=== PATIENT | female | born 1940 | race Caucasian/White ===

== ENCOUNTER 2016-11-03 14:41 | Inpatient (IN) | payer MEDICARE ==
[~2016-11-03] VITALS: Ht 152.4 cm; Wt 51.3 kg
[~2016-11-03 14:41] MED LIST: AMOX1TAB61 PO; ASPI325T4 PO; DIAZ10TA4 PO; FAMO20TA5 PO; FLUO20TA11 PO; FURO40TA4 PO; GUAI100L12 PO; GUAI600T38 PO; IPRA3AMP NEB; LEVO125T5 PO; LEVO75TA PO; LISI-338 PO; METO25TA4 PO; MONT10TA9 PO; PRED-220 PO; SENN1TAB5 PO
[2016-11-03] MEDS ORDERED: IPRATRPIUM/ALBUTEROL 0.5/2.5MG 3 ML NEBU. ONE (14:52)
[2016-11-03] MEDS ORDERED: methylPREDNISolone SOD SUCC PF 125 MG/2 ML VIAL. IV ONE (15:10)
[2016-11-03] MEDS ORDERED: ALPRAZOLAM 0.25 MG TABLET PO ONE (15:10)
[2016-11-03] MEDS ORDERED: IPRATRPIUM/ALBUTEROL 0.5/2.5MG 3 ML NEBU. NEB ONE (15:10)
[2016-11-03] MEDS ORDERED: IV NORMAL SALINE 1,000ML 1,000 ML IV ONE (15:10)
--- NOTE | 2016-11-03 15:15 | RAD ---
AP chest, 11/03/2016: History: Dyspnea Comparison is made to a study from 10/22/2016. There has been a previous median sternotomy. The heart size is normal. There is mild tortuosity of the thoracic aorta. A calcified granuloma is present in the left base. No acute infiltrates are seen. There is no evidence of pleural fluid. IMPRESSION: No acute cardiopulmonary abnormality is detected.
[2016-11-03 15:21] LABS: BASO # 0.1 x10^3/uL (0.0-0.2); BASO % 0 % (0-3); EOS % 0 % (0-3); HEMATOCRIT 39.4 % (36.0-47.0); HEMOGLOBIN 12.7 g/dL (12.0-15.5); LYMPH # 1.4 x10^3/uL (1.0-4.8); LYMPH % 7 % (24-48); MEAN CORPUSCULAR HEMOGLOBIN 28 pg (25-35); MEAN CORPUSCULAR HGB CONC 32 g/dL (31-37); MEAN CORPUSCULAR VOLUME 85 fL (79-100); MONO # 0.7 x10^3/uL (0.0-1.1); MONO % 4 % (0-9); NEUT # 17.6 x10^3uL (1.8-7.7); NEUT % 89 % (31-73); PLATELET COUNT 311 x10^3/uL (140-400); RED BLOOD COUNT 4.63 x10^6/uL (3.50-5.40); RED CELL DISTRIBUTION WIDTH 15.7 % (11.5-14.5); WHITE BLOOD COUNT 19.8 x10^3/uL (4.0-11.0)
[2016-11-03 15:27] LABS: CREATININE 1.7 mg/dL (0.6-1.0); GFR 29.3; POTASSIUM 4.8 mmol/L (3.5-5.1)
[2016-11-03] MEDS ORDERED: ONDANSETRON PF 4 MG/2 ML VIAL. IV PRN (15:45)
--- NOTE | 2016-11-03 15:52 | ED.ADGEN ---
Past History Past Medical History: Angina, Anxiety, Bronchitis, CAD, CHF, Constipation, COPD , CVA, Depression, Gallstones, GERD, High Cholesterol, Hypertension, Hypothyroid , HI, Other Past Surgical History: Coronary Bypass Surgery, Other Smoking: Cigarettes Alcohol Use: None Drug Use: None Adult General HPI HPI Patient is a 76-year-old female with a history of COPD complaining of increasing dyspnea over the last 24 hours despite compliance with her medication and pulmonary regimen. She denies any other recent illness. Review of Systems Review of Systems Constitutional: Denies fever or chills [] Eyes: Denies change in visual acuity, redness, or eye pain [] HENT: Denies nasal congestion or sore throat [] Respiratory: Denies cough or shortness of breath [] Cardiovascular: No additional information not addressed in HPI [] GI: Denies abdominal pain, nausea, vomiting, bloody stools or diarrhea [] : Denies dysuria or hematuria [] Musculoskeletal: Denies back pain or joint pain [] Integument: Denies rash or skin lesions [] Neurologic: Denies headache, focal weakness or sensory changes [] Endocrine: Denies polyuria or polydipsia [] Current Medications Current Medications Current Medications Medications (Trade) Dose Ordered Sig/Mike Start Time Stop Time Status Last Admin Dose Admin Albuterol/ Ipratropium (Duoneb) 3 ml RTQID 11/03/16 16:00 11/04/16 15:59 UNV Alprazolam (Xanax) 0.25 mg 1X ONCE 11/03/16 15:10 11/03/16 15:11 DC 11/03/16 15:10 0.25 MG Methylprednisolone Sodium Succinate 125 mg 125 mg 1X ONCE 11/03/16 15:10 11/03/16 15:11 DC 11/03/16 15:08 125 MG Ondansetron HCl (Zofran) 4 mg PRN Q4HRS PRN 11/03/16 15:45 11/04/16 15:44 UNV Sodium Chloride (Iv Sodium Chloride 0.9% 1,000ml) 1,000 ml @ 1,000 mls/hr 1X ONCE 11/03/16 15:10 11/03/16 16:09 11/03/16 15:07 1,000 MLS/HR Allergies Allergies Allergies Coded Allergies Type Severity Reaction Last Updated Verified No Known Drug Allergies 01/23/14 No Physical Exam Physical Exam Constitutional: Well developed, well nourished, moderate acute distress, non- toxic appearance. [] HENT: Normocephalic, atraumatic, bilateral external ears normal, oropharynx moist, no oral exudates, nose normal. [] Eyes: PERRLA, EOMI, conjunctiva normal, no discharge. [] Neck: Normal range of motion, no tenderness, supple, no stridor. [] Cardiovascular:Heart rate regular rhythm, no murmur [] Lungs & Thorax: Bilateral breath sounds are diminished with marked wheezing [] Abdomen: Bowel sounds normal, soft, no tenderness, no masses, no pulsatile masses. [] Skin: Warm, dry, no erythema, no rash. [] Back: No tenderness, no CVA tenderness. [] Extremities: No tenderness, no cyanosis, no clubbing, ROM intact, no edema. [] Neurologic: Alert and oriented X 3, normal motor function, normal sensory function, no focal deficits noted. [] Psychologic: Affect normal, judgement normal, mood normal. [] Current Patient Data Vital Signs Vital Signs Date Time Temp Pulse Resp B/P Pulse Ox O2 Delivery O2 Flow Rate FiO2 11/03/16 15:42 94 Nasal Cannula 2.0 11/03/16 14:41 98.3 82 40 Lab Results Laboratory Tests Test 11/03/16 14:55 White Blood Count 19.8x10^3/uL (4.0-11.0) H Red Blood Count 4.63x10^6/uL (3.50-5.40) Hemoglobin 12.7g/dL (12.0-15.5) Hematocrit 39.4% (36.0-47.0) Mean Corpuscular Volume 85fL (79-100) Mean Corpuscular Hemoglobin 28pg (25-35) Mean Corpuscular Hemoglobin Concent 32g/dL (31-37) Red Cell Distribution Width 15.7% (11.5-14.5) H Platelet Count 311x10^3/uL (140-400) Neutrophils (%) (Auto) 89% (31-73) H Lymphocytes (%) (Auto) 7% (24-48) L Monocytes (%) (Auto) 4% (0-9) Eosinophils (%) (Auto) 0% (0-3) Basophils (%) (Auto) 0% (0-3) Neutrophils # (Auto) 17.6x10^3uL (1.8-7.7) H Lymphocytes # (Auto) 1.4x10^3/uL (1.0-4.8) Monocytes # (Auto) 0.7x10^3/uL (0.0-1.1) Eosinophils # (Auto) 0.0x10^3/uL (0.0-0.7) Basophils # (Auto) 0.1x10^3/uL (0.0-0.2) Sodium Level 140mmol/L (136-145) Potassium Level 4.8mmol/L (3.5-5.1) Chloride Level 101mmol/L (98-107) Carbon Dioxide Level 34mmol/L (21-32) H Anion Gap 5 (6-14) L Blood Urea Nitrogen 40mg/dL (7-20) H Creatinine 1.7mg/dL (0.6-1.0) H Estimated GFR (Cockcroft-Gault) 29.3 Glucose Level 110mg/dL (70-99) H Calcium Level 9.0mg/dL (8.5-10.1) Troponin I Quantitative < 0.017ng/mL (0-0.055) EKG EKG [] Radiology/Procedures Radiology/Procedures AP chest, 11/03/2016: History: Dyspnea Comparison is made to a study from 10/22/2016. There has been a previous median sternotomy. The heart size is normal. There is mild tortuosity of the thoracic aorta. A calcified granuloma is present in the left base. No acute infiltrates are seen. There is no evidence of pleural fluid. IMPRESSION: No acute cardiopulmonary abnormality is detected. DICTATED AND SIGNED BY: CUAUHTEMOC MILES MD DATE: 11/03/16 [id number] CC: MICHAEL GOMEZ MD; ETELVINA MCKAY MD ~[] Course & Med Decision Making Course & Med Decision Making Pertinent Labs and Imaging studies reviewed. (See chart for details) Steroids, duoneb in ED. Admitted for additional treatment. [] Final Impression Final Impression COPD exacerbation[] Problems: Dragon Disclaimer Dragon Disclaimer This electronic medical record was generated, in whole or in part, using a voice recognition dictation system. MICHAEL GOMEZ MD Nov 03, 2016 15:52
[2016-11-03] MEDS ORDERED: IPRATRPIUM/ALBUTEROL 0.5/2.5MG 3 ML NEBU. NEB SCH (16:10)
--- NOTE | 2016-11-03 16:34 | ACF ---
Admit Criteria Forms Admit Criteria Forms Admit Criteria Forms COPD Clinical Indications for Admission to Inpatient Care (Place 'X' for any and all applicable criteria): Admission is indicated for ANY ONE of the following (1)(2)(3): [X ]I. Acute exacerbation by high-risk comorbidity (e.g., pneumonia, dysrhythmia, heart failure, pleural effusion, pneumothorax) or severe underlying COPD (e.g., steroid dependent) [ ]II. Inpatient admission required rather than observation care (see Chronic Obstructive Pulmonary Disease: Observation Care) because of ANY ONE of the following: [ ]a) New or pre-existing signs or symptoms of COPD (eg, dyspnea or Tachypnea at rest or with minimal activity) that persist despite outpatient and observation care treatment [ ]b) New-onset hypoxemia (room air SaO2 less than 90%, PO2 less than 60 mm Hg (8.0 kPa)) that persists despite outpatient and observation care treatment [ ]c) Worsening of pre-existing hypoxemia (eg, new or increased requirement for supplemental oxygen to maintain oxygenation at baseline level) that persists despite outpatient and observation care treatment, with oxygen treatment needs performable only in acute inpatient setting [ ]d) Hypercarbia (PCO2 greater than 40 mm Hg (5.3 kPa))-induced respiratory acidosis (pH less than 7.35) that persists despite outpatient and observation care treatment [ ]e) Supplemental oxygen or respiratory treatments for over 24 hours that are performable only in acute inpatient setting [ ]f) Chest tube placement with active evacuation (e.g., suction, drainage) (5) [ ]g) Other condition, treatment or monitoring requiring inpatient admission [ ]III. Planned invasive surgical or diagnostic procedures requiring acute- care hospitalization [ ]IV. Acute respiratory failure (e.g., uncompensated hypercarbia, severe hypoxemia) [ ]V. Severe comorbid condition (e.g., severe steroid myopathy, acute vertebral fracture) that has acutely worsened pulmonary function [ ]. Confusion state, lethargy, obtundation, stupor or coma Extended stay beyond goal length of stay may be needed for (31)(32): [ ]a ) Respiratory Failure. [ ]b) Severe or persisting hypoxemia or hypercarbia [ ]c) Severe or persistent dyspnea [ ]d) Comorbidities (e.g. chronic heart failure, atrial fibrillation with rapid response, pneumonia) [ ]e) Malnutrition The original [employer] content created by [facility] has been revised. The portions of the content which have been revised are identified through the use of italic text or in bold, and [facility] has neither reviewed nor approved the modified material. All other unmodified content is copyright [facility]. Please see references footnoted in the original [facility] edition 2016 MEE TAVAREZ Nov 03, 2016 16:34
[2016-11-03 16:45] VITALS: BP 132/58
--- NOTE | 2016-11-03 16:57 | NUR ---
Pt arrived on unit in bed A&Ox4, pt transferred into bed with assistance, VSS, assessment complete, pt denies pain, pt oriented to unit and hospital environment, call light within reach, no complaints.
[2016-11-03 18:09] LABS: % LYMPHS 7 % (24-48); % MONOS 2 % (0-10); % SEGS 91 % (35-66)
[2016-11-03 18:13] LABS: PLT ESTIMATE ADEQUATE (ADEQUATE)
[2016-11-03 18:25] VITALS: BP 132/58
[2016-11-03] MEDS: IPRATRPIUM/ALBUTEROL 0.5/2.5MG 3 ML NEBU. NEB SCH (20:17)
[2016-11-03] MEDS: GUAIFENESIN ER 600 MG TABLET.ER PO SCH (20:56)
[2016-11-03] MEDS: METOPROLOL TART IMMED RELEASE 25 MG TABLET PO SCH (20:56)
[2016-11-03] MEDS: methylPREDNISolone SOD SUCC PF 40 MG/ML VIAL. IV SCH (20:57)
[2016-11-03] MEDS ORDERED: LISINOPRIL 5 MG TABLET. PO SCH (21:00)
[2016-11-03] MEDS ORDERED: MONTELUKAST 10 MG TABLET. PO SCH (21:00)
[2016-11-03] MEDS ORDERED: DIAZEPAM 5 MG TABLET PO SCH (21:00)
[2016-11-03] MEDS: GUAIFENESIN 300 MG/15 ML LIQUID. PO PRN (21:04)
[2016-11-04] MEDS: IPRATRPIUM/ALBUTEROL 0.5/2.5MG 3 ML NEBU. NEB SCH ×3 (05:21→15:34)
[2016-11-04 06:09] VITALS: BP 154/72
[2016-11-04] MEDS ORDERED: LEVOTHYROXINE 75 MCG TABLET PO SCH (07:00)
[2016-11-04] MEDS: GUAIFENESIN ER 600 MG TABLET.ER PO SCH (08:36)
[2016-11-04] MEDS: methylPREDNISolone SOD SUCC PF 40 MG/ML VIAL. IV SCH (08:36)
[2016-11-04 08:40] VITALS: BP 160/65
[2016-11-04] MEDS: METOPROLOL TART IMMED RELEASE 25 MG TABLET PO SCH (08:44)
[2016-11-04] MEDS ORDERED: PREDNISONE 10 MG TABLET PO SCH (09:00)
[2016-11-04] MEDS ORDERED: FAMOTIDINE 20 MG TABLET PO SCH (09:00)
[2016-11-04] MEDS ORDERED: FLUOXETINE HCL 20 MG CAPSULE PO SCH (09:00)
[2016-11-04] MEDS ORDERED: FUROSEMIDE 40 MG TABLET PO SCH (09:00)
[2016-11-04] MEDS ORDERED: ASPIRIN 325 MG TABLET PO SCH (09:00)
[2016-11-04 11:31] VITALS: BP 148/65
[2016-11-04] MEDS: GUAIFENESIN 300 MG/15 ML LIQUID. PO PRN (11:35)
--- NOTE | 2016-11-04 13:15 | NUR ---
1255 Pt breathing with increased labor and wheezing, administered breathing tx with scheduled duoneb, well-tolerated by pt, post-treatment observations: RR 36, HR 80, o2 sat 97 on 2L via NC, breath sounds: diminished with wheezing on expiration [place], RT notified of treatment and outcome observations
[2016-11-04] MEDS ORDERED: LEVO75TA5 PO (15:30)
--- NOTE | 2016-11-04 18:43 | SSS ---
ADMIT DATE: 11/04/2016 HISTORY OF PRESENT ILLNESS: The patient is a 76-year-old female patient who has been in and out of the hospital multiple times with COPD exacerbation, acute respiratory failure. She has severe advanced chronic obstructive pulmonary disease and she has also aortic aneurysm dissection that was emergently repaired about 2 years ago at [facility]. She was admitted. This was her third admission with acute hypoxic respiratory failure, COPD exacerbation, and it was felt that the patient actually does not want to be intubated and given her severity of her illness, we recommended that she should be on hospice and was in fact discharged home on hospice care. PAST MEDICAL HISTORY: Significant for hypertension, chronic obstructive pulmonary disease with possible bronchial asthma, hyperlipidemia, hypothyroidism, anxiety and depression, gastroesophageal reflux disease, CVA with right-sided hemiplegia, aortic aneurysm dissection that was emergently repaired about 2 years ago at [facility]. PAST SURGICAL HISTORY: Significant for emergent repair of aortic aneurysm, thoracentesis, and cholecystectomy. She has also had total abdominal hysterectomy and bilateral salpingo-oophorectomy, multiple hemorrhoid surgeries, and also surgery for her anal fissure. FAMILY HISTORY: Positive for hypertension. SOCIAL HISTORY: She is . She has no children. She lives with her brother and [id number]. She is an ex-smoker. She does not drink alcohol or use any recreational drugs. REVIEW OF SYSTEMS: The patient denied any blurring of vision, cataract, glaucoma or macular degeneration. Denied any earache, tinnitus or sensorineural deafness. Denied any nosebleeds, stuffy nose or postnasal drip. Her main complaint with shortness of breath, cough, which is mostly dry, orthopnea, and paroxysmal nocturnal dyspnea. She is extremely short of breath on minimal exertion. ALLERGIES: She has no known drug allergies. MEDICATIONS: She is currently on the following medications: She is on aspirin 325 mg once a day, diazepam 10 mg once a day, famotidine 20 mg once a day, fluoxetine 20 mg once a day, furosemide 40 mg once a day, Mucinex 600 mg p.o. b.i.d., ipratropium bromide, albuterol inhaler 4 times a day. She is on levothyroxine 37.5 mcg once a day, lisinopril 5 mg once a day, metoprolol tartrate 12.5 mg twice a day, Singulair 10 mg once a day, and prednisone tapering dose at 40 mg once a day. PHYSICAL EXAMINATION: GENERAL: On examining her, she was resting slightly propped up in bed, in no apparent respiratory distress. She was extremely pale, cachectic, but no jaundice, cyanosis or thyromegaly. No jugular venous distension. No lower limb edema. VITAL SIGNS: Her heart rate was 84, blood pressure was 133/61, temperature was 98.3, respiratory rate was 18 and oxygen saturation was 96% on 2 liters of oxygen. HEAD, EYES, EARS, NOSE, AND THROAT: Showed normocephalic, atraumatic. NECK: Supple. HEART: Showed normal first and second heart sounds with no gallop, rub or murmur. CHEST: Shows central trachea, equally reduced expansion, reduced air entry, vesicular sounds with bilateral scattered rhonchi. Cannot appreciate any crepitation. ABDOMEN: Distended, soft, nontender. NEUROLOGIC: She is awake, alert, responding appropriately. Cranial nerves intact. EXTREMITIES: She moves extremities without difficulty, although she is mostly bed bound and chair bound. LABORATORY DATA: Her lab work showed a white cell count of 19,800, hemoglobin 12.7, hematocrit 39, MCV 85 and platelet count of 311,000. Her chemistry showed a serum sodium 140, potassium 4.8, chloride 101, bicarbonate 34, anion gap of 5, BUN 40, creatinine 1.7. Her calcium was 9. Her blood gases showed a pH of 7.31, pCO2 of 36, pO2 of 61, bicarbonate 18 and oxygen saturation was 95% on 4 liters of oxygen. DISCHARGE MEDICATIONS: The patient was discharged home to continue on all of her home medications. FINAL DIAGNOSES: Advanced end-stage chronic obstructive pulmonary disease, chronic respiratory failure. Her other medical problems include hypertension, hyperlipidemia, hypothyroidism. She is actually excessively . Her TSH was extremely low at 0.010. So, I cut down her Synthroid to 37.5 mcg once a day. ALEJO DUNHAM MD DR: DOMINGUEZ/darryl JOB#: [id number] / [id number]
--- NOTE | 2016-11-04 18:58 | NUR ---
Pt d/c A&Ox4 with son and daughter in law at bedside, pt escorted to [facility] entrance via wheelchair by SEB Dyer and pt family
== END 2016-11-04 19:13 | disposition hospice, home (50) | DRG 189 ==
LOC: ER 14:41 → 1 SOUTH 15:46
PROVIDERS: ADMIT Internal Medicine; ATTEND Internal Medicine
DX: J96.21 Acute and chronic respiratory failure with hypoxia (principal); J44.1 Chronic obstructive pulmonary disease with (acute) exacerbation; E78.00 Pure hypercholesterolemia, unspecified; E03.9 Hypothyroidism, unspecified; E78.5 Hyperlipidemia, unspecified; I10 Essential (primary) hypertension; I25.10 Atherosclerotic heart disease of native coronary artery without angina pectoris; I50.9 Heart failure, unspecified; F32.9 Major depressive disorder, single episode, unspecified; F41.9 Anxiety disorder, unspecified; K59.00 Constipation, unspecified; K21.9 Gastro-esophageal reflux disease without esophagitis; Z82.49 Family history of ischemic heart disease and other diseases of the circulatory system; Z86.73 Personal history of transient ischemic attack (TIA), and cerebral infarction without residual deficits; Z90.710 Acquired absence of both cervix and uterus; Z87.891 Personal history of nicotine dependence; Z95.1 Presence of aortocoronary bypass graft
CPT/HCPCS: 36415; 71010; 80048; 84484; 85007; 85027; 94640; 96374; J2920; J2930; J7620; 99285-25; J7030